=== PATIENT | female | born 1990 | race Caucasian/White ===

== ENCOUNTER 2021-11-21 11:54 | Inpatient (IN) | payer MEDICARE, MEDICAID, SELFPAY ==
--- NOTE | 2021-11-21 12:23 | MHC.CARE ---
Pt is MARLENE Wheeler from the [facility]
--- NOTE | 2021-11-21 12:27 | ED_ITS ---
HPI - Psych General Chief Complaint: Psychiatric Symptoms Stated Complaint: SI, LAC Time Seen by Provider: 11/21/21 12:19 Source: patient and EMS Mode of arrival: EMS Limitations: no limitations History of Present Illness HPI Narrative: 31-year-old female with a history of autism, hypothyroidism, NIDDM, mental heal th presents with reports of suicidal thoughts the last few weeks. States her medications are not helping. States she has been intermittently compliant. Patient tells me her parents are evil and she sees demons running around who are telling her that her parents are evil. NO HI. No substance use. No physical complaints. Patient sent in on Section 12. Patient is an inpatient bed search. Patient reports scratching herself with her CD case on her right forearm Related Data Home Medications Medication Instructions Recorded Confirmed aripiprazole 1 mg/mL oral solution 3 ml PO DAILY 11/21/21 11/21/21 fluoxetine 10 mg capsule 1 cap PO DAILY 11/21/21 11/21/21 fluoxetine 20 mg capsule 1 cap PO DAILY 11/21/21 11/21/21 levothyroxine 25 mcg tablet 1 tab PO DAILY 11/21/21 11/21/21 (Euthyrox) Allergies Allergy/AdvReac Type Severity Reaction Status Date / Time haloperidol [From HALDOL] AdvReac Intermediate DYSURIA Unverified 11/30/19 19:31 ziprasidone [From GEODON] AdvReac Unknown DIZZINESS Unverified 11/30/19 19:31 Review of Systems 2 Review of Systems: Yes all other systems are reviewed and are negative Constitutional: Constitutional: Reports no additional constitutional complaints, Denies body ache(s), Denies chills, Denies fever(s), Denies heada aiden(s) and Denies weakness Eyes: Eyes: Reports no additional eye complaints and Denies change in vision ENT: Reports system reviewed and no additional complaints, except as documented, Denies dizziness, Denies headache(s), Denies nasal congestion, Denies nasal discharge and Denies neck pain Cardiovascular: Cardiovascular: Reports no additional cardiovascular c omplaints, Denies chest pain, Denies leg edema and Denies dyspnea Respiratory: Respiratory: Reports no additional respiratory complaints, Denies cough and Denies dyspnea Gastrointestinal: Gastrointestinal: Reports no additional gastrointestinal complaints, Denies abdominal pain, Denies diarrhea, Denies nausea and Denies vomiting Genitourinary: Genitourinary: Reports no additional female genitourinary complaints and Denies urinary incontinence Musculoskeletal: Musculoskeletal: Reports no additional musculoskeletal complaints, Denies back pain, Denies arthralgias, Denies joint swelling, Denies neck pain, Denies numbness and Denies tingling Integumentary/Breasts: Skin/Breast: Reports system reviewed and no additional complaints, except as docu and Denies rash Neurologic: Reports system reviewed and no additional complaints, except as documented, Denies Abnormal speech present, Denies dizziness, Denies headache(s), Denies numbness, Denies tingling and Denies weakness Psychiatric: Psychiatric: Denies homicidal ideation and Reports suicidal ideation [facility] Past Medical History Attestation statement: The following information was validated with the patient. Source: old records reviewed and nursing notes reviewed Social History Social History Advance Directives: No Advance Directives Information Provided: No Physical Exam Vital Signs: Vital Signs: Last Vital Signs Temp 99 F 11/21/21 12:36 Pulse 84 11/21/21 12:36 Resp 16 11/21/21 12:36 BP 149/72 H 11/21/21 12:36 Pulse Ox 98 11/21/21 12:36 O2 Del Method 11/21/21 12:36 BMI result Body Mass Index 26.6 Const: General: cooperative, healthy appearing, comfortable and no acute distress Orientation/consciousness: patient oriented x3 Limitations: no limitations HEENT: Head: Yes normal to inspection Ears: hearing grossly normal bilaterally General nose exam: Normal external nose present Face and sinus: Yes normal facial exam Mouth: Normal oral and palatal mucosa present Throat: Yes posterior oropharynx normal Eyes: General: appearance normal, both eyes and all related structures Pupils: Equal, round and reactive pupils present Neck: Neck: Yes normal visual inspection Chest: Chest palpation & inspection: normal inspection of the chest Resp: Effort & Inspection: normal respiratory effort Auscultation: clear to auscultation bilaterally Cardio: Rate: regular rate Rhythm: regular rhythm Peripheral pulses: Peripheral pulses 2+ throughout GI: Inspection: Yes normal to inspection Palpation (GI): Soft to palpation and nontender Auscultation: normal bowel sounds Back/Spine/Pelvis: Thoracic/Lumbar Spine: thoracic and lumbar spine normal to inspection Skin: General skin exam: no rashes or lesions noted Neuro: General: patient oriented x3, no focal motor deficits and normal sensation to monofilament Cranial nerves: Yes CN's II-XII intact bilaterally and Yes Equal, round and reactive pupils present Cognition (Neuro): normal cognition Speech: No Abnormal speech present Gait exam (Neuro): Normal gait present Motor exam (neuro): 5/5 motor strength present throughout Extrem: Other: Over the distal right forearm on the volar aspect there is a superficial abrasion General: Yes normal to inspection Course Course Course Narrative: 1520-reviewed labs, EKG and drug screen. Patient is medically cleared for inpatient psych. Placed in physician observation pending disposition. Medication reconciliation ordered MDM - Psych MDM Narrative Medical decision making narrative: 31 yo female here on section 12 with reports of SI, visual hallucinations, states my parents are evil. Need med clearance prior to psych placement. No concern for acute ingestion or trauma Medical Records Attestation: I reviewed the patient's medical records. Lab Data Attestation: I reviewed the patient's lab results. Result diagrams: 11/21/21 13:10 11/21/21 13:10 Labs: Lab Results 11/21/21 11/21/21 11/21/21 Range/Units 12:24 13:10 13:10 WBC 11.4 H (4.8-10.8) X10*3/uL RBC 4.31 (4.20-5.50) X10*6/uL Hgb 12.7 (12.0-16.0) g/dl Hct 38.8 (37.0-47.0) % MCV 90.0 (80.0-98.0) fL MCH 29.5 (27.0-33.0) pg MCHC 32.7 (31.0-35.0) g/dl RDW 12.6 (11.0-16.0) % Plt Count 325 (160-400) X10*3/uL MPV 10.4 (9.4-12.3) fL Immature Gran % (Auto) 0.5 H (0.0-0.4) % Neut % (Auto) 83.3 H (45-73) % Lymph % (Auto) 11.8 L (20-40) % [place] % (Auto) 3.8 (2-11) % Eos % (Auto) 0.1 (0-4) % Baso % (Auto) 0.5 (0-2) % Lymph # (Auto) 1.4 (1.2-4.9) X10*3/uL [place] # (Auto) 0.4 (0.1-1.2) X10*3/uL Eos # (Auto) 0.0 (0.0-0.4) X10*3/uL Baso # (Auto) 0.1 (0.0-0.2) X10*3/uL Abs Immat Gran (auto) 0.06 H (0.00-0.03) X10*3/uL Absolute Neuts (auto) 9.5 H (2.0-8.3) x10*3/uL Absolute Nucleated RBC 0.000 (0.0-0.012) X10*3/uL Nucleated RBC % (auto) 0.0 (0.0-0.2) /100WBC Sodium 142 (135-145) mmol/L Potassium 3.9 (3.3-5.1) mmol/L Chloride 104 (96-108) mmol/L Carbon Dioxide 23 (22-29) mmol/L Anion Gap 19 (12-20) BUN 9 (9-16) mg/dL Creatinine 0.76 (0.5-1.4) mg/dL Estim Creat Clear Calc 109.0 Estimated GFR > 60 Random Glucose 185 H (60-115) mg/dL Calcium 9.2 (8.4-10.2) mg/dL Total Bilirubin 0.2 (0.0-1.0) mg/dL Direct Bilirubin < 0.2 (0.0-0.5) mg/dL AST 18 (5-31) U/L ALT 21 (0-31) U/L Alkaline Phosphatase 88 (39-117) U/L Total Protein 8.1 H (6.5-8.0) g/dL Albumin 4.7 (3.5-5.0) g/dL TSH (0.32-4.0) uIU/mL Urine Test (NEGATIVE) Salicylates < 5.0 L (15-30) mg/dL Urine Opiates Screen (Not Detect) Urine Fentanyl Screen (Not Detect) Acetaminophen < 1 (<30) mcg/mL Ur Barbiturates Screen (Not Detect) Ur Phencyclidine Scrn (Not Detect) Ur Amphetamines Screen (Not Detect) U Benzodiazepines Scrn (Not Detect) Urine Cocaine Screen (Not Detect) U Marijuana (THC) Screen (Not Detect) Ethyl Alcohol < 10 mg/dL COVID-19 (YOLANDA) Negative (Negative) COVID-19 Clin Com See Note 11/21/21 11/21/21 11/21/21 Range/Units 13:10 14:12 14:12 WBC (4.8-10.8) X10*3/uL RBC (4.20-5.50) X10*6/uL Hgb (12.0-16.0) g/dl Hct (37.0-47.0) % MCV (80.0-98.0) fL MCH (27.0-33.0) pg MCHC (31.0-35.0) g/dl RDW (11.0-16.0) % Plt Count (160-400) X10*3/uL MPV (9.4-12.3) fL Immature Gran % (Auto) (0.0-0.4) % Neut % (Auto) (45-73) % Lymph % (Auto) (20-40) % [place] % (Auto) (2-11) % Eos % (Auto) (0-4) % Baso % (Auto) (0-2) % Lymph # (Auto) (1.2-4.9) X10*3/uL [place] # (Auto) (0.1-1.2) X10*3/uL Eos # (Auto) (0.0-0.4) X10*3/uL Baso # (Auto) (0.0-0.2) X10*3/uL Abs Immat Gran (auto) (0.00-0.03) X10*3/uL Absolute Neuts (auto) (2.0-8.3) x10*3/uL Absolute Nucleated RBC (0.0-0.012) X10*3/uL Nucleated RBC % (auto) (0.0-0.2) /100WBC Sodium (135-145) mmol/L Potassium (3.3-5.1) mmol/L Chloride (96-108) mmol/L Carbon Dioxide (22-29) mmol/L Anion Gap (12-20) BUN (9-16) mg/dL Creatinine (0.5-1.4) mg/dL Estim Creat Clear Calc Estimated GFR Random Glucose (60-115) mg/dL Calcium (8.4-10.2) mg/dL Total Bilirubin (0.0-1.0) mg/dL Direct Bilirubin (0.0-0.5) mg/dL AST (5-31) U/L ALT (0-31) U/L Alkaline Phosphatase (39-117) U/L Total Protein (6.5-8.0) g/dL Albumin (3.5-5.0) g/dL TSH 1.37 (0.32-4.0) uIU/mL Urine Test NEGATIVE (NEGATIVE) Salicylates (15-30) mg/dL Urine Opiates Screen Not Detected (Not Detect) Urine Fentanyl Screen Not Detected (Not Detect) Acetaminophen (<30) mcg/mL Ur Barbiturates Screen Not Detected (Not Detect) Ur Phencyclidine Scrn Not Detected (Not Detect) Ur Amphetamines Screen Not Detected (Not Detect) U Benzodiazepines Scrn Not Detected (Not Detect) Urine Cocaine Screen Not Detected (Not Detect) U Marijuana (THC) Screen Not Detected (Not Detect) Ethyl Alcohol mg/dL COVID-19 (YOLANDA) (Negative) COVID-19 Clin Com ECG Data Attestation: I personally reviewed and interpreted this ECG as follows: ECG interpretation date: 11/21/21 ECG interpretation time: 14:12 Interpretation: Normal sinus rhythm, normal ID, normal QRS, normal QT Discharge Plan Discharge Clinical Impression: Bipolar disorder Patient Disposition: Admitted As Inpatient
[2021-11-21 12:36] VITALS: BP 149/72; BP 169/90; PULSE 80; PULSE 84; RESP 16; TEMP 37.2; O2SAT 98; BMI 26.6
[2021-11-21 13:01] LABS: COVID-19 Test Negative (Negative)
[2021-11-21 13:16] LABS: MANUAL DIFF FLAG NO
[2021-11-21 13:21] LABS: Basophils Absolute Auto 0.1 X10*3/uL (0.0-0.2); Basophils Percent Auto 0.5 % (0-2); Eosinophils Percent Auto 0.1 % (0-4); Hematocrit 38.8 % (37.0-47.0); Hemoglobin 12.7 g/dl (12.0-16.0); Imm Gran Abs Auto 0.06 X10*3/uL (0.00-0.03); Imm Gran Pct Auto 0.5 % (0.0-0.4); Lymphocytes Absolute Auto 1.4 X10*3/uL (1.2-4.9); Lymphocytes Percent Auto 11.8 % (20-40); Mean Corpuscular HGB Conc 32.7 g/dl (31.0-35.0); Mean Corpuscular Hemoglobin 29.5 pg (27.0-33.0); Mean Platelet Volume 10.4 fL (9.4-12.3); Monocytes Absolute Auto 0.4 X10*3/uL (0.1-1.2); Monocytes Percent Auto 3.8 % (2-11); Neutrophils Absolute Auto 9.5 x10*3/uL (2.0-8.3); Neutrophils Percent Auto 83.3 % (45-73); Platelet Count 325 X10*3/uL (160-400); Red Blood Count 4.31 X10*6/uL (4.20-5.50); Red Cell Distribution Width 12.6 % (11.0-16.0); White Blood Count 11.4 X10*3/uL (4.8-10.8)
[2021-11-21 13:46] LABS: Acetaminophen LAB < 1 mcg/mL (<30); Alanine Aminotransferase 21 U/L (0-31); Albumin Level 4.7 g/dL (3.5-5.0); Alkaline Phosphatase 88 U/L (39-117); Anion Gap 19 (12-20); Aspartate Amino Transferase 18 U/L (5-31); Bilirubin Direct < 0.2 mg/dL (0.0-0.5); Bilirubin Total 0.2 mg/dL (0.0-1.0); Blood Urea Nitrogen 9 mg/dL (9-16); Calcium 9.2 mg/dL (8.4-10.2); Carbon Dioxide 23 mmol/L (22-29); Chloride 104 mmol/L (96-108); Estimated Glomerular Filt Rate > 60; Ethanol < 10 mg/dL; Glucose Random 185 mg/dL (60-115); Potassium 3.9 mmol/L (3.3-5.1); Salicylate < 5.0 mg/dL (15-30); Sodium 142 mmol/L (135-145); Total Protein 8.1 g/dL (6.5-8.0)
[2021-11-21 14:06] LABS: Thyroid Stimulating Hormone 1.37 uIU/mL (0.32-4.0)
[2021-11-21 14:29] LABS: UPreg QC Valid YES; Urine Pregnancy NEGATIVE (NEGATIVE)
[2021-11-21 14:35] LABS: Amphetamine Screen Urine Not Detected (Not Detect); Barbiturates, Urine Not Detected (Not Detect); Benzodiazepines Screen Urine Not Detected (Not Detect); Cannabinoid Screen Urine Not Detected (Not Detect); Cocaine Screen Urine Not Detected (Not Detect); Fentanyl, urine Not Detected (Not Detect); Opiate Screen Urine Not Detected (Not Detect); Phencyclidine Screen Urine Not Detected (Not Detect)
[2021-11-21 22:45] VITALS: BP 139/73; PULSE 73; RESP 16; TEMP 36.6; O2SAT 94
--- NOTE | 2021-11-22 00:16 | PC.ADMIT ---
Devika is a 31 year old , Stateless speaking female. Patient was oriented X4 and presented to the ED with SI and VH. Patient reported that she was seeing demons and this has caused her to have SI. Patient has superficial scratches to right arm. Patient reported that she thought her father was evil. Patient reported poor sleep for past week and she has been forgetting to take some of her medications. Patient contacts for safety on the unit and reports no AH since coming into the hospital. Patient UTOX negative and Covid Negative. Patient on the Autism spectrum. Patient was cooperative and polite with admission. Patient reporting no pain.
[2021-11-22 09:00] VITALS: BP 146/75; PULSE 70; RESP 17; TEMP 36.7; O2SAT 98
[2021-11-22 09:10] LABS: Cholesterol 209 mg/dL; HDL Cholesterol 54 mg/dL; LDL Cholesterol Calculated 115 mg/dl; Triglycerides 201 mg/dL
[2021-11-22 09:19] LABS: Estimated Average Glucose 146 mg/dL; Hemoglobin A1c % 6.7 %
[2021-11-22 09:34] LABS: Free T4 (Free Thyroxine) 0.95 ng/dL (0.71-1.85); Thyroid Stimulating Hormone 1.44 uIU/mL (0.32-4.0)
[2021-11-22] MEDS: Levothyroxine Sodium 25 MCG TABLET PO (10:22)
[2021-11-22] MEDS: ARIPiprazole 5 MG TABLET PO (10:22)
[2021-11-22] MEDS: metFORMIN HCl 1,000 MG TABLET 1000 MG PO ×2 (10:22→21:08)
[2021-11-22] MEDS: FLUoxetine HCl 20 MG CAPSULE PO (10:22)
[2021-11-22] MEDS: Magnesium Hydrox/Alum Hydrox 30 ML ORAL.SUSP PO (15:03)
[2021-11-22 15:35] LABS: Folate > 20.0 ng/mL (> or = 4.0); Vitamin B12 364 pg/mL (200-900)
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
[2021-11-22 20:35] VITALS: BP 131/69; PULSE 88; RESP 16; TEMP 36.6; O2SAT 96
[2021-11-22 20:41] LABS: Glucose, Whole Blood 254 mg/dL (60-115)
[2021-11-22] MEDS: Ondansetron ODT 4 MG TAB.RAPDIS TRANSLINGU (21:07)
[2021-11-22] MEDS: Prazosin HCL 1 MG CAPSULE PO (21:08)
[2021-11-22] MEDS: hydrOXYzine HCL 25 MG TABLET PO (21:08)
[2021-11-23 06:00] VITALS: BP 125/68; PULSE 80; RESP 18; TEMP 36.3; O2SAT 98
[2021-11-23 07:15] LABS: Estimated Average Glucose 148 mg/dL; Hemoglobin A1c % 6.8 %
[2021-11-23 07:35] LABS: TSH reflex Free T4 2.05 uIU/mL (0.32-4.0)
[2021-11-23] MEDS: FLUoxetine HCl 20 MG CAPSULE PO (09:04)
[2021-11-23] MEDS: Levothyroxine Sodium 25 MCG TABLET PO (09:04)
[2021-11-23] MEDS: ARIPiprazole 5 MG TABLET PO (09:04)
[2021-11-23] MEDS: metFORMIN HCl 1,000 MG TABLET 1000 MG PO ×2 (09:04→20:09)
[2021-11-23 09:09] LABS: Glucose, Whole Blood 172 mg/dL (60-115)
[2021-11-23 20:05] VITALS: BP 120/60; PULSE 78; RESP 16; TEMP 36.7; O2SAT 95
[2021-11-23] MEDS: hydrOXYzine HCL 25 MG TABLET PO (20:09)
[2021-11-23] MEDS: Prazosin HCL 1 MG CAPSULE PO (20:09)
[2021-11-23] MEDS: traZODone HCL 50 MG TABLET PO (22:54)
--- NOTE | 2021-11-23 23:50 | P.PNPSI_ITS ---
Subjective Subjective Date of Service: 11/23/21 Reason For Visit: Depression,SI Subjective Notes: Conditional Voluntary Interim History: Patient has been generally flat withdrawn no self-harming behavior has been accepting medication Medication Compliance: Yes Mental Status Exam Mental Status Exam Patient Appearance: Appropriate Level of Consciousness: Awake Patient Behavior: Appropriate Mood Description: Nervous and Apprehensive Affect Description: Depressed and Flat Ability to Follow Directions: Good Speech Pattern: Impoverished Hallucinations: Visual (Seeing demons) Delusions: Paranoid Ideation Thought Process: Evasive and Slowed Thinking Thought Content: positive for Preoccupation, positive for Suicidal Ideation (Denies plan or intent in this setting) and positive for Homicidal Ideation (Had made homicidal statements toward her mother denies now) Depressive Symptoms: Increased Anxiety Diagnostics Vital Signs (24Hr): Vital Signs - 24 hr 11/23/21 06:00 11/23/21 20:05 Temperature 97.4 F 98.1 F Pulse Rate 80 78 Respiratory Rate 18 16 Blood Pressure 125/68 120/60 Pulse Oximetry 98 95 Oxygen Delivery Method Room Air Room Air BMI result Body Mass Index 26.6 Labs Results: 11/21/21 13:10 11/21/21 13:10 Labs: Laboratory Results - last 48 hr 11/22/21 11/22/21 11/22/21 08:39 08:39 08:39 POC Glucose Estimat Average Glucose 146 Hemoglobin A1c % 6.7 Magnesium 2.0 Triglycerides 201 Cholesterol 209 LDL Cholesterol, Calc 115 HDL Cholesterol 54 Vitamin B12 364 Folate > 20.0 TSH 1.44 Free T4 0.95 11/22/21 11/23/21 11/23/21 20:34 06:30 06:30 POC Glucose 254 H Estimat Average Glucose 148 Hemoglobin A1c % 6.8 Magnesium Triglycerides Cholesterol LDL Cholesterol, Calc HDL Cholesterol Vitamin B12 Folate TSH 2.05 Free T4 11/23/21 08:26 POC Glucose 172 H Estimat Average Glucose Hemoglobin A1c % Magnesium Triglycerides Cholesterol LDL Cholesterol, Calc HDL Cholesterol Vitamin B12 Folate TSH Free T4 Medications Medications Current Medications Acetaminophen (Acetaminophen 325 Mg Tablet) 650 mg PO Q6H PRN PRN Reason: Headache/Pain Mild Scale (1-3) Al Hydroxide/Mg Hydroxide (Magnesium Hydrox/Alum Hydrox 30 Ml Oral.Susp) 30 ml PO Q6H PRN PRN Reason: Heartburn/Nausea Last Admin: 11/22/21 15:03 Dose: 30 ml Aripiprazole (Aripiprazole 5 Mg Tablet) 5 mg PO DAILY [facility] Last Admin: 11/23/21 09:04 Dose: 5 mg Fluoxetine HCl (Fluoxetine Hcl 20 Mg Capsule) 20 mg PO DAILY [facility] Last Admin: 11/23/21 09:04 Dose: 20 mg Hydroxyzine HCl (Hydroxyzine Hcl 25 Mg Tablet) 25 mg PO Q6H PRN PRN Reason: Anxiety Last Admin: 11/23/21 20:09 Dose: 25 mg Levothyroxine Sodium (Levothyroxine Sodium 25 Mcg Tablet) 25 mcg PO DAILY@0630 [facility] Last Admin: 11/23/21 09:04 Dose: 25 mcg Magnesium Hydroxide (Milk Of Magnesia 30 Ml Oral.Susp) 30 ml PO DAILY PRN PRN Reason: Constipation Metformin HCl (Metformin Hcl 1,000 Mg Tablet) 1,000 mg PO BID [facility] Last Admin: 11/23/21 20:09 Dose: 1,000 mg Ondansetron HCl (Ondansetron Odt 4 Mg Tab.Rapdis) 4 mg TRANSLINGU Q6H PRN PRN Reason: Nausea Last Admin: 11/22/21 21:07 Dose: 4 mg Prazosin HCl (Prazosin Hcl 1 Mg Capsule) 1 mg PO BEDTIME PRN; Protocol PRN Reason: nightmares Last Admin: 11/23/21 20:09 Dose: 1 mg Trazodone HCl (Trazodone Hcl 50 Mg Tablet) 50 mg PO BEDTIME PRN PRN Reason: Insomnia Last Admin: 11/23/21 22:54 Dose: 50 mg Allergies Allergies Allergy/AdvReac Type Severity Reaction Status Date / Time haloperidol [From HALDOL] AdvReac Intermediate DYSURIA Unverified 11/21/21 23:20 ziprasidone [From GEODON] AdvReac Unknown DIZZINESS Unverified 11/30/19 19:31 Assessment & Plan Assessment & Plan (1) Major depression with psychotic features: Status: Acute Code(s): F32.3 - Major depressive disorder, single episode, severe with psychotic feature s (2) Autism: Status: Acute Code(s): F84.0 - Autistic disorder (3) Post traumatic stress disorder (PTSD): Status: Acute Code(s): F43.10 - Post-traumatic stress disorder, unspecified Plan Continue Abilify fluoxetine. Unclear if patient's psychotic symptoms are truly psychotic patient appears upset at her mother who she feels has been yelling at her complaints of intrusive memories regarding the past need to clarify diagnostic in situational issues patient denying current self-harm in this setting I spent minutes with the patient and/or on the patient floor today, greater than?50% of which was spent counseling/coordinating care. Reason for contiued inpatient stay Substantial Risk for: rapid decompensation
[2021-11-24 08:15] VITALS: BP 136/78; PULSE 80; RESP 16; TEMP 36.8; O2SAT 98
[2021-11-24] MEDS: Levothyroxine Sodium 25 MCG TABLET PO (09:14)
[2021-11-24] MEDS: metFORMIN HCl 1,000 MG TABLET 1000 MG PO ×2 (09:14→21:45)
[2021-11-24] MEDS: ARIPiprazole 5 MG TABLET PO (09:14)
[2021-11-24] MEDS: FLUoxetine HCl 20 MG CAPSULE PO (09:14)
[2021-11-24 09:26] LABS: Glucose, Whole Blood 163 mg/dL (60-115)
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
[2021-11-24 15:55] LABS: COVID-19 Test Negative (Negative)
[2021-11-24 21:30] VITALS: BP 126/74; PULSE 78; RESP 16; TEMP 36.9; O2SAT 98
[2021-11-24] MEDS: traZODone HCL 50 MG TABLET PO (21:45)
[2021-11-24] MEDS: hydrOXYzine HCL 25 MG TABLET PO (21:45)
[2021-11-24] MEDS: Prazosin HCL 1 MG CAPSULE PO (21:45)
[2021-11-25 08:03] LABS: Glucose, Whole Blood 236 mg/dL (60-115)
[2021-11-25 08:45] LABS: Glucose, Whole Blood 180 mg/dL (60-115)
[2021-11-25] MEDS: Levothyroxine Sodium 25 MCG TABLET PO (08:52)
[2021-11-25] MEDS: metFORMIN HCl 1,000 MG TABLET 1000 MG PO ×2 (08:52→20:53)
[2021-11-25] MEDS: FLUoxetine HCl 20 MG CAPSULE PO (08:52)
[2021-11-25] MEDS: ARIPiprazole 10 MG TABLET PO (08:52)
[2021-11-25 09:10] VITALS: BP 123/62; PULSE 80; RESP 18; TEMP 36.6; O2SAT 98
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
[2021-11-25 20:40] LABS: Glucose, Whole Blood 209 mg/dL (60-115)
[2021-11-25 20:50] VITALS: BP 118/65; PULSE 80; RESP 16; TEMP 37.1; O2SAT 94
[2021-11-25] MEDS: traZODone HCL 50 MG TABLET PO (20:53)
[2021-11-25] MEDS: Prazosin HCL 1 MG CAPSULE PO (20:53)
[2021-11-25] MEDS: hydrOXYzine HCL 25 MG TABLET PO (20:54)
[2021-11-26 08:44] LABS: Glucose, Whole Blood 168 mg/dL (60-115)
[2021-11-26 08:45] VITALS: BP 117/57; PULSE 76; RESP 16; TEMP 36.3; O2SAT 97
[2021-11-26] MEDS: FLUoxetine HCl 20 MG CAPSULE PO (08:53)
[2021-11-26] MEDS: ARIPiprazole 5 MG TABLET PO (08:53)
[2021-11-26] MEDS: metFORMIN HCl 1,000 MG TABLET 1000 MG PO ×2 (08:54→21:35)
[2021-11-26] MEDS: Levothyroxine Sodium 25 MCG TABLET PO (08:54)
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
[2021-11-26 20:49] VITALS: PULSE 82; TEMP 36.6; O2SAT 96
[2021-11-26 20:50] LABS: Glucose, Whole Blood 261 mg/dL (60-115)
[2021-11-26] MEDS: traZODone HCL 50 MG TABLET PO ×2 (21:36→23:11)
[2021-11-26 23:09] VITALS: BP 118/66; PULSE 100
[2021-11-26] MEDS: Prazosin HCL 1 MG CAPSULE PO (23:11)
[2021-11-27] MEDS: hydrOXYzine HCL 25 MG TABLET PO ×2 (01:54→23:53)
[2021-11-27 06:00] VITALS: BP 128/61; PULSE 76; RESP 18; TEMP 36.6; O2SAT 98
[2021-11-27 07:00] VITALS: BMI 26.5
[2021-11-27 08:35] LABS: Glucose, Whole Blood 162 mg/dL (60-115)
[2021-11-27] MEDS: metFORMIN HCl 1,000 MG TABLET 1000 MG PO ×2 (08:38→20:26)
[2021-11-27] MEDS: ARIPiprazole 5 MG TABLET PO (08:38)
[2021-11-27] MEDS: FLUoxetine HCl 20 MG CAPSULE PO (08:38)
[2021-11-27] MEDS: Levothyroxine Sodium 25 MCG TABLET PO (08:38)
--- NOTE | 2021-11-27 13:06 | P.PNPSI_ITS ---
Subjective Subjective Date of Service: 11/27/21 Reason For Visit: Depression,SI Interim History: no change in presentation: not that good. why? both of my parents are . does express some difficulty sleeping, agrees to have trazodone scheduled for bedtime. endorses CAH to kill self from demons. per staff, poor sleep 2/2 roommate farting and demons. anx/dep 12/22. CAH to kill self, but denies SI, feels safe in hospital. VH of demons. slept after 0200. Mental Status Exam Mental Status Exam Narrative: adequately dressed. adequately groomed. no PMA/PMR. cooperative. speech soft. nml rate, amount, latency. flattened tone. thoughts linear and generally logical, but some bizarre content such as her mom's being . affect flexible, normo-intense, non-labile. mood better. no SI/HI/AVH expressed. Diagnostics Vital Signs (24Hr): Vital Signs - 24 hr 11/26/21 20:49 11/26/21 23:09 11/27/21 06:00 Temperature 97.8 F 97.9 F Pulse Rate 82 100 76 Respiratory Rate 18 Blood Pressure 118/66 128/61 Pulse Oximetry 96 98 Oxygen Delivery Method Room Air Room Air BMI result Body Mass Index 26.5 Labs Results: 11/21/21 13:10 11/21/21 13:10 Labs: Laboratory Results - last 48 hr 11/25/21 11/26/21 11/26/21 20:32 08:23 20:40 POC Glucose 209 H 168 H 261 H 11/27/21 08:25 POC Glucose 162 H Medications Medications Current Medications Acetaminophen (Acetaminophen 325 Mg Tablet) 650 mg PO Q6H PRN PRN Reason: Headache/Pain Mild Scale (1-3) Al Hydroxide/Mg Hydroxide (Magnesium Hydrox/Alum Hydrox 30 Ml Oral.Susp) 30 ml PO Q6H PRN PRN Reason: Heartburn/Nausea Last Admin: 11/22/21 15:03 Dose: 30 ml Aripiprazole (Aripiprazole 5 Mg Tablet) 5 mg PO DAILY [facility] Last Admin: 11/27/21 08:38 Dose: 5 mg Fluoxetine HCl (Fluoxetine Hcl 20 Mg Capsule) 20 mg PO DAILY [facility] Last Admin: 11/27/21 08:38 Dose: 20 mg Hydroxyzine HCl (Hydroxyzine Hcl 25 Mg Tablet) 25 mg PO Q6H PRN PRN Reason: Anxiety Last Admin: 11/27/21 01:54 Dose: 25 mg Levothyroxine Sodium (Levothyroxine Sodium 25 Mcg Tablet) 25 mcg PO DAILY@0630 [facility] Last Admin: 11/27/21 08:38 Dose: 25 mcg Magnesium Hydroxide (Milk Of Magnesia 30 Ml Oral.Susp) 30 ml PO DAILY PRN PRN Reason: Constipation Metformin HCl (Metformin Hcl 1,000 Mg Tablet) 1,000 mg PO BID [facility] Last Admin: 11/27/21 08:38 Dose: 1,000 mg Ondansetron HCl (Ondansetron Odt 4 Mg Tab.Rapdis) 4 mg TRANSLINGU Q6H PRN PRN Reason: Nausea Last Admin: 11/22/21 21:07 Dose: 4 mg Prazosin HCl (Prazosin Hcl 1 Mg Capsule) 1 mg PO BEDTIME PRN; Protocol PRN Reason: nightmares Last Admin: 11/26/21 23:11 Dose: 1 mg Trazodone HCl (Trazodone Hcl 50 Mg Tablet) 50 mg PO BEDTIME [facility] Allergies Allergies Allergy/AdvReac Type Severity Reaction Status Date / Time haloperidol [From HALDOL] AdvReac Intermediate DYSURIA Unverified 11/21/21 23:20 ziprasidone [From GEODON] AdvReac Unknown DIZZINESS Unverified 11/30/19 19:31 Assessment & Plan Assessment & Plan (1) Major depression with psychotic features: Status: Acute Code(s): F32.3 - Major depressive disorder, single episode, severe with psychotic features (2) Autism: Status: Acute Code(s): F84.0 - Autistic disorder (3) Post traumatic stress disorder (PTSD): Status: Acute Code(s): F43.10 - Post-traumatic stress disorder, unspecified Plan Continue Abilify fluoxetine. Unclear if patient's psychotic symptoms are truly psychotic patient appears upset at her mother who she feels has been yelling at her complaints of intrusive memories regarding the past need to clarify diagnostic in situational issues patient denying current self-harm in this setting 11/24: endorses SI. no AVH in the past day or so? increase abilify to 10. appears limited and over-endorsing of Sx, supporting lack of true psychosis. 11/25: decrease abilify to 5 after collateral indicating hyperglycemia at higher doses and dubious effectiveness/need. endorses SI, but appears to be over- endorsing Sx. 11/26: stable, safe on unit. over-endorsing Sx. flexible affect, no negative Sx of psychosis or thought disorder, does not present as someone who is experiencing AVH. broached need to focus on dispo planning for wednesday. pt is amenable. 11/27: no change in presentation. continue current mgmt. I spent ___15___ minutes with the patient and/or on the patient floor today, greater than?50% of which was spent counseling/coordinating care. Reason for contiued inpatient stay Substantial Risk for: harm to self, inability to function and rapid decompensation
[2021-11-27 20:20] VITALS: BP 132/67; PULSE 87; RESP 18; TEMP 36.8; O2SAT 98
[2021-11-27] MEDS: traZODone HCL 50 MG TABLET PO ×2 (20:26→23:52)
[2021-11-27 21:05] LABS: Glucose, Whole Blood 269 mg/dL (60-115)
[2021-11-27] MEDS: Prazosin HCL 1 MG CAPSULE PO (23:52)
[2021-11-28 08:35] LABS: Glucose, Whole Blood 185 mg/dL (60-115)
[2021-11-28] MEDS: Levothyroxine Sodium 25 MCG TABLET PO (08:40)
[2021-11-28] MEDS: metFORMIN HCl 1,000 MG TABLET 1000 MG PO ×2 (08:40→21:36)
[2021-11-28] MEDS: FLUoxetine HCl 20 MG CAPSULE PO (08:40)
[2021-11-28] MEDS: ARIPiprazole 5 MG TABLET PO (08:40)
[2021-11-28 09:00] VITALS: BP 117/65; PULSE 78; TEMP 36.4; O2SAT 98
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
[2021-11-28 21:16] VITALS: BP 114/58; PULSE 77; RESP 16; TEMP 36.6; O2SAT 95
[2021-11-28] MEDS: hydrOXYzine HCL 25 MG TABLET PO (21:36)
[2021-11-28] MEDS: Prazosin HCL 1 MG CAPSULE PO (21:36)
[2021-11-28] MEDS: traZODone HCL 50 MG TABLET PO (21:36)
[2021-11-28 21:43] LABS: Glucose, Whole Blood 192 mg/dL (60-115)
[2021-11-29] MEDS: FLUoxetine HCl 20 MG CAPSULE PO (08:48)
[2021-11-29] MEDS: ARIPiprazole 5 MG TABLET PO (08:48)
[2021-11-29] MEDS: metFORMIN HCl 1,000 MG TABLET 1000 MG PO ×2 (08:49→22:52)
[2021-11-29] MEDS: Levothyroxine Sodium 25 MCG TABLET PO (08:49)
[2021-11-29 08:50] VITALS: BP 122/67; PULSE 84; RESP 18; TEMP 36.6; O2SAT 96
[2021-11-29 09:04] LABS: Glucose, Whole Blood 143 mg/dL (60-115)
[2021-11-29 11:49] LABS: Creatinine Clr Calc Pharmacy 111.8; Estimated Glomerular Filt Rate > 60
--- NOTE | 2021-11-29 13:27 | P.PNPSI_ITS ---
Subjective Subjective Date of Service: 11/29/21 Reason For Visit: Depression,SI Subjective Notes: Conditional Voluntary Interim History: Pt reports sleeping well. She does report not feeling well. She reports not feeling safe here but does feel safe at [facility]. She reports she trusts her OP providers. She reports she can't cook because she is suicidal but she does enjoy singing and she can do this even when suicidal. Pt with bright affect, pleasant and cooperative on approach. Appears very limited cognitively and concrete. Medication Compliance: Yes Side effects from medications: No Attending Groups: No Review of Systems Review of Systems Yes all other systems are reviewed and are negative Constitutional: Reports no additional constitutional complaints, Denies body ache(s), Denies chills, Denies fever(s), Denies headache(s) and Denies weakness Eyes: Reports no additional eye complaints and Denies change in vision Reports system reviewed and no additional complaints, except as documented, Denies dizziness, Denies headache(s), Denies nasal congestion, Denies nasal discharge and Denies neck pain Cardiovascular: Reports no additional cardiovascular complaints, Denies chest pain, Denies leg edema and Denies dyspnea Respiratory: Reports no additional respiratory complaints, Denies cough and Denies dyspnea Gastrointestinal: Reports no additional gastrointestinal complaints, Denies abdominal pain, Denies diarrhea, Denies nausea and Denies vomiting Musculoskeletal: Reports no additional musculoskeletal complaints, Denies back pain, Denies arthralgias, Denies joint swelling, Denies neck pain, Denies numbness and Denies tingling Skin/Breast: Reports system reviewed and no additional complaints, except as docu and Denies rash Reports system reviewed and no additional complaints, except as documented, Denies Abnormal speech present, Denies dizziness, Denies headache(s), Denies numbness, Denies tingling and Denies weakness Psychiatric: Denies homicidal ideation and Reports suicidal ideation Mental Status Exam Mental Status Exam Narrative: adequately dressed. adequately groomed. no PMA/PMR. cooperative. speech soft. nml rate, amount, latency. flattened tone. thoughts linear and illogical, some bizarre content such as her mom's being . affect flexible, normo-intense, non-labile. mood not good. VH of demons, CAH to kill herself, AH saying she is worthless and empty. SI to cut wrist. no HI. Diagnostics Vital Signs (24Hr): Vital Signs - 24 hr 11/28/21 21:16 11/29/21 08:50 Temperature 97.8 F 97.8 F Pulse Rate 77 84 Respiratory Rate 16 18 Blood Pressure 114/58 L 122/67 Pulse Oximetry 95 96 Oxygen Delivery Method Room Air Room Air BMI result Body Mass Index 26.5 Labs Results: 11/21/21 13:10 11/29/21 11:16 Labs: Laboratory Results - last 48 hr 11/27/21 11/28/21 11/28/21 20:56 08:28 21:34 Creatinine Estim Creat Clear Calc Estimated GFR POC Glucose 269 H 185 H 192 H 11/29/21 11/29/21 08:34 11:16 Creatinine 0.74 Estim Creat Clear Calc 111.8 Estimated GFR > 60 POC Glucose 143 H Medications Medications Current Medications Acetaminophen (Acetaminophen 325 Mg Tablet) 650 mg PO Q6H PRN PRN Reason: Headache/Pain Mild Scale (1-3) Al Hydroxide/Mg Hydroxide (Magnesium Hydrox/Alum Hydrox 30 Ml Oral.Susp) 30 ml PO Q6H PRN PRN Reason: Heartburn/Nausea Last Admin: 11/22/21 15:03 Dose: 30 ml Aripiprazole (Aripiprazole 5 Mg Tablet) 5 mg PO DAILY [facility] Last Admin: 11/29/21 08:48 Dose: 5 mg Fluoxetine HCl (Fluoxetine Hcl 20 Mg Capsule) 20 mg PO DAILY [facility] Last Admin: 11/29/21 08:48 Dose: 20 mg Hydroxyzine HCl (Hydroxyzine Hcl 25 Mg Tablet) 25 mg PO Q6H PRN PRN Reason: Anxiety Last Admin: 11/28/21 21:36 Dose: 25 mg Levothyroxine Sodium (Levothyroxine Sodium 25 Mcg Tablet) 25 mcg PO DAILY@0630 [facility] Last Admin: 11/29/21 08:49 Dose: 25 mcg Magnesium Hydroxide (Milk Of Magnesia 30 Ml Oral.Susp) 30 ml PO DAILY PRN PRN Reason: Constipation Metformin HCl (Metformin Hcl 1,000 Mg Tablet) 1,000 mg PO BID [facility] Last Admin: 11/29/21 08:49 Dose: 1,000 mg Ondansetron HCl (Ondansetron Odt 4 Mg Tab.Rapdis) 4 mg TRANSLINGU Q6H PRN PRN Reason: Nausea Last Admin: 11/22/21 21:07 Dose: 4 mg Prazosin HCl (Prazosin Hcl 1 Mg Capsule) 1 mg PO BEDTIME PRN; Protocol PRN Reason: nightmares Last Admin: 11/28/21 21:36 Dose: 1 mg Trazodone HCl (Trazodone Hcl 50 Mg Tablet) 50 mg PO BEDTIME PAMELA Last Admin: 11/28/21 21:36 Dose: 50 mg Allergies Allergies Allergy/AdvReac Type Severity Reaction Status Date / Time haloperidol [From HALDOL] AdvReac Intermediate DYSURIA Verified 11/29/21 06:00 ziprasidone [From GEODON] AdvReac Unknown DIZZINESS Verified 11/29/21 06:00 Assessment & Plan Assessment & Plan (1) Major depression with psychotic features: Status: Acute Code(s): F32.3 - Major depressive disorder, single episode, severe with psychotic features (2) Autism: Status: Acute Code(s): F84.0 - Autistic disorder (3) Post traumatic stress disorder (PTSD): Status: Acute Code(s): F43.10 - Post-traumatic stress disorder, unspecified Plan Continue Abilify fluoxetine. Unclear if patient's psychotic symptoms are truly psychotic patient appears upset at her mother who she feels has been yelling at her complaints of intrusive memories regarding the past need to clarify diagnostic in situational issues patient denying current self-harm in this setting 11/24: endorses SI. no AVH in the past day or so? increase abilify to 10. appears limited and over-endorsing of Sx, supporting lack of true psychosis. 11/25: decrease abilify to 5 after collateral indicating hyperglycemia at higher doses and dubious effectiveness/need. endorses SI, but appears to be over- endorsing Sx. 11/26: stable, safe on unit. over-endorsing Sx. flexible affect, no negative Sx of psychosis or thought disorder, does not present as someone who is experiencin g AVH. broached need to focus on dispo planning for wednesday. pt is amenable. 11/27: no change in presentation. continue current mgmt. 11/28: no change in presentation. continue current mgmt. planning for wednesday discharge. per collateral this is not far from her baseline. 11/29 continue current tx does not appear internally preoccupied but use of report of hallucinations to enforced need for tx at inpt facility in [place] without understanding (due to cognitive limitation) that she can't be [facility] s[facility]red there. affect very bright especially when telling this check writer salesperson how much she likes singing and would like to sing. I spent minutes with the patient and/or on the patient floor today, greater than?50% of which was spent counseling/coordinating care. Reason for contiued inpatient stay Substantial Risk for: inability to function
[2021-11-29 22:30] VITALS: BP 132/60; PULSE 79; RESP 16; TEMP 36.6; O2SAT 95
[2021-11-29 22:41] LABS: Glucose, Whole Blood 262 mg/dL (60-115)
[2021-11-29] MEDS: Prazosin HCL 1 MG CAPSULE PO (22:53)
[2021-11-29] MEDS: hydrOXYzine HCL 25 MG TABLET PO (22:53)
[2021-11-29] MEDS: traZODone HCL 50 MG TABLET PO (22:53)
[2021-11-30 08:42] LABS: Glucose, Whole Blood 150 mg/dL (60-115)
[2021-11-30 09:00] VITALS: BP 126/74; PULSE 80; RESP 18; TEMP 36.6; O2SAT 99
[2021-11-30] MEDS: Levothyroxine Sodium 25 MCG TABLET PO (09:05)
[2021-11-30] MEDS: ARIPiprazole 5 MG TABLET PO (09:06)
[2021-11-30] MEDS: metFORMIN HCl 1,000 MG TABLET 1000 MG PO ×2 (10:02→20:46)
[2021-11-30] MEDS: FLUoxetine HCl 20 MG CAPSULE PO (10:03)
--- NOTE | 2021-11-30 13:51 | P.PNPSI_ITS ---
Subjective Subjective Date of Service: 11/30/21 Reason For Visit: Depression,SI Subjective Notes: Conditional Voluntary Interim History: Pt sitting in common area. She appears with brighter affect. When asked how she is doing she states not well. She then adds, my father . Once topic is change to how much she likes singing, pt presents with bright affect and engaging in more positive way. Per nursing, no behavioral concerns. Takes medications as prescribed. Medication Compliance: Yes Side effects from medications: No Review of Systems Review of Systems Yes all other systems are reviewed and are negative Constitutional: Reports no additional constitutional complaints, Denies body ache(s), Denies chills, Denies fever(s), Denies headache(s) and Denies weakness Eyes: Reports no additional eye complaints and Denies change in vision Reports system reviewed and no additional complaints, except as documented, Denies dizziness, Denies headache(s), Denies nasal congestion, Denies nasal discharge and Denies neck pain Cardiovascular: Reports no additional cardiovascular complaints, Denies chest pain, Denies leg edema and Denies dyspnea Respiratory: Reports no additional respiratory complaints, Denies cough and Denies dyspnea Gastrointestinal: Reports no additional gastrointestinal complaints, Denies abdominal pain, Denies diarrhea, Denies nausea and Denies vomiting Musculoskeletal: Reports no additional musculoskeletal complaints, Denies back pain, Denies arthralgias, Denies joint swelling, Denies neck pain, Denies numbness and Denies tingling Skin/Breast: Reports system reviewed and no additional complaints, except as docu and Denies rash Reports system reviewed and no additional complaints, except as documented, Denies Abnormal speech present, Denies dizziness, Denies headache(s), Denies numbness, Denies tingling and Denies weakness Psychiatric: Denies homicidal ideation and Reports suicidal ideation Mental Status Exam Mental Status Exam Narrative: adequately dressed. adequately groomed. no PMA/PMR. cooperative. speech soft. nml rate, amount, latency. flattened tone. thoughts linear and illogical, some bizarre content such as her mom's being . affect flexible, normo-intense, non-labile. mood not good. VH of demons, CAH to kill herself, AH saying she is worthless and empty. SI to cut wrist. no HI. Diagnostics Vital Signs (24Hr): Vital Signs - 24 hr 11/30/21 09:00 11/30/21 20:15 Temperature 97.9 F 98.1 F Pulse Rate 80 80 Respiratory Rate 18 18 Blood Pressure 126/74 122/68 Pulse Oximetry 99 97 Oxygen Delivery Method Room Air Room Air BMI result Body Mass Index 26.5 Labs Results: 11/21/21 13:10 11/29/21 11:16 Labs: Laboratory Results - last 48 hr 11/29/21 11/29/21 11/29/21 08:34 11:16 22:36 Creatinine 0.74 Estim Creat Clear Calc 111.8 Estimated GFR > 60 POC Glucose 143 H 262 H 11/30/21 11/30/21 08:36 20:45 Creatinine Estim Creat Clear Calc Estimated GFR POC Glucose 150 H 258 H Medications Medications Current Medications Acetaminophen (Acetaminophen 325 Mg Tablet) 650 mg PO Q6H PRN PRN Reason: Headache/Pain Mild Scale (1-3) Al Hydroxide/Mg Hydroxide (Magnesium Hydrox/Alum Hydrox 30 Ml Oral.Susp) 30 ml PO Q6H PRN PRN Reason: Heartburn/Nausea Last Admin: 11/22/21 15:03 Dose: 30 ml Aripiprazole (Aripiprazole 5 Mg Tablet) 5 mg PO DAILY [facility] Last Admin: 11/30/21 09:06 Dose: 5 mg Fluoxetine HCl (Fluoxetine Hcl 20 Mg Capsule) 20 mg PO DAILY [facility] Last Admin: 11/30/21 10:03 Dose: 20 mg Hydroxyzine HCl (Hydroxyzine Hcl 25 Mg Tablet) 25 mg PO Q6H PRN PRN Reason: Anxiety Last Admin: 11/30/21 20:46 Dose: 25 mg Levothyroxine Sodium (Levothyroxine Sodium 25 Mcg Tablet) 25 mcg PO DAILY@0630 [facility] Last Admin: 11/30/21 09:05 Dose: 25 mcg Magnesium Hydroxide (Milk Of Magnesia 30 Ml Oral.Susp) 30 ml PO DAILY PRN PRN Reason: Constipation Metformin HCl (Metformin Hcl 1,000 Mg Tablet) 1,000 mg PO BID [facility] Last Admin: 11/30/21 20:46 Dose: 1,000 mg Ondansetron HCl (Ondansetron Odt 4 Mg Tab.Rapdis) 4 mg TRANSLINGU Q6H PRN PRN Reason: Nausea Last Admin: 11/22/21 21:07 Dose: 4 mg Prazosin HCl (Prazosin Hcl 1 Mg Capsule) 1 mg PO BEDTIME PRN; Protocol PRN Reason: nightmares Last Admin: 11/30/21 20:46 Dose: 1 mg Trazodone HCl (Trazodone Hcl 50 Mg Tablet) 50 mg PO BEDTIME PAMELA Last Admin: 11/30/21 20:46 Dose: 50 mg Allergies Allergies Allergy/AdvReac Type Severity Reaction Status Date / Time haloperidol [From HALDOL] AdvReac Intermediate DYSURIA Verified 11/29/21 06:00 ziprasidone [From GEODON] AdvReac Unknown DIZZINESS Verified 11/29/21 06:00 Assessment & Plan Assessment & Plan (1) Major depression with psychotic features: Status: Acute Code(s): F32.3 - Major depressive disorder, single episode, severe with psychotic features (2) Autism: Status: Acute Code(s): F84.0 - Autistic disorder (3) Post traumatic stress disorder (PTSD): Status: Acute Code(s): F43.10 - Post-traumatic stress disorder, unspecified Plan Continue Abilify fluoxetine. Unclear if patient's psychotic symptoms are truly psychotic patient appears upset at her mother who she feels has been yelling at her complaints of intrusive memories regarding the past need to clarify diagnostic in situational issues patient denying current self-harm in this set ting 11/24: endorses SI. no AVH in the past day or so? increase abilify to 10. appears limited and over-endorsing of Sx, supporting lack of true psychosis. 11/25: decrease abilify to 5 after collateral indicating hyperglycemia at higher doses and dubious effectiveness/need. endorses SI, but appears to be over- endorsing Sx. 11/26: stable, safe on unit. over-endorsing Sx. flexible affect, no negative Sx of psychosis or thought disorder, does not present as someone who is experiencing AVH. broached need to focus on dispo planning for wednesday. pt is amenable. 11/27: no change in presentation. continue current mgmt. 11/28: no change in presentation. continue current mgmt. planning for wednesday discharge. per collateral this is not far from her baseline. 11/29 continue current tx does not appear internally preoccupied but use of report of hallucinations to enforced need for tx at in facility in [place] without understanding (due to cognitive limitation) that she can't be transferred there. affect very bright especially when telling this policy writer typist how much she likes singing and would like to sing. 11/30 continue current mds and tx. I spent minutes with the patient and/or on the patient floor today, greater than?50% of which was spent counseling/coordinating care. Reason for contiued inpatient stay Substantial Risk for: inability to function
[2021-11-30 20:15] VITALS: BP 122/68; PULSE 80; RESP 18; TEMP 36.7; O2SAT 97
[2021-11-30] MEDS: traZODone HCL 50 MG TABLET PO (20:46)
[2021-11-30] MEDS: hydrOXYzine HCL 25 MG TABLET PO (20:46)
[2021-11-30] MEDS: Prazosin HCL 1 MG CAPSULE PO (20:46)
[2021-11-30 22:35] LABS: Glucose, Whole Blood 258 mg/dL (60-115)
[2021-12-01 06:00] VITALS: BP 122/73; PULSE 80; RESP 16; TEMP 36.6; O2SAT 97
[2021-12-01] MEDS: Levothyroxine Sodium 25 MCG TABLET PO (08:21)
[2021-12-01] MEDS: FLUoxetine HCl 20 MG CAPSULE PO (08:21)
[2021-12-01] MEDS: ARIPiprazole 5 MG TABLET PO (08:21)
[2021-12-01] MEDS: metFORMIN HCl 1,000 MG TABLET 1000 MG PO (08:21)
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
== END 2021-12-01 12:45 | disposition home or self-care (01) | DRG 885 ==
LOC: HO.ED 18:20 → HO.PADLT16 22:33
PROVIDERS: Nurse Practitioner Family; Psychiatry & Neurology Psychiatry; Registered Nurse; Admitting Provider Psychiatry & Neurology Psychiatry; Emergency Provider Internal Medicine; Visit Provider Psychiatry & Neurology Psychiatry
DX: F32.3 Major depressive disorder, single episode, severe with psychotic features (principal); R45.851 Suicidal ideations; F84.0 Autistic disorder; F43.10 Post-traumatic stress disorder, unspecified; E03.9 Hypothyroidism, unspecified; E11.9 Type 2 diabetes mellitus without complications; Z20.822 Contact with and (suspected) exposure to COVID-19; Z91.52 Personal history of nonsuicidal self-harm; Z88.8 Allergy status to other drugs, medicaments and biological substances; Z79.84 Long term (current) use of oral hypoglycemic drugs; Z79.890 Hormone replacement therapy; Z79.899 Other long term (current) drug therapy
CPT/HCPCS: 36415; 80048; 80061; 80076; 80143; 80179; 80307; 81025; 82077; 82565; 82607; 82746; 82947; 83036; 83735; 84439; 84443; 85025; 87635; 99285